=== PATIENT | female | born 1975 | race Caucasian/White ===

== ENCOUNTER 2017-12-06 20:09 | Emergency (ER) | payer OTHER ==
[~2017-12-06] VITALS: Ht 167.6 cm; Wt 59.0 kg
[2017-12-06 21:02] LABS: BASOPHILS ABSOLUTE AUTO 0.03 K/mm3 (0.00-0.23); BASOPHILS PERCENT AUTO 0 % (0-2); EOSINOPHILS ABSOLUTE AUTO 0.43 K/mm3 (0.00-0.68); EOSINOPHILS PERCENT AUTO 5 % (0-6); Hematocrit 37.4 % (33.0-51.0); Hemoglobin 12.5 g/dL (11.5-16.0); IMMATURE GRAN ABSOLUTE AUTO 0.01 K/mm3 (0.00-0.10); IMMATURE GRAN PERCENT AUTO 0 % (0-1); LYMPHOCYTES ABSOLUTE AUTO 2.37 K/mm3 (0.84-5.20); LYMPHOCYTES PERCENT AUTO 26 % (21-46); MONOCYTES ABSOLUTE AUTO 0.61 K/mm3 (0.16-1.47); MONOCYTES PERCENT AUTO 7 % (4-13); Mean Corpuscular HGB 31.2 pg (26.0-34.0); Mean Corpuscular HGB Conc 33.4 g/dL (31.5-36.5); Mean Corpuscular Volume 93 fL (80-100); Mean Platelet Volume 9.4 fL (9.1-12.4); NEUTROPHILS PERCENT AUTO 62 % (41-73); Platelet Count 224 K/mm3 (150-400); RDW Coefficient Variation 13.8 % (11.7-14.2); RDW Standard Deviation 47.3 fL (35.1-46.3); Red Blood Cell Count 4.01 M/mm3 (3.80-5.20); White Blood Cell Count 9.15 K/mm3 (4.00-11.30)
[2017-12-06 21:10] LABS: Calcium, Ionized (POC) 1.17 mmol/L (1.10-1.46); Chloride (POC) 103 mmol/L (98-108); Creatinine (POC) 0.6 mg/dL (0.6-1.0); Glucose (ISTAT POC) 101 mg/dL (70-99); Hemoglobin (POC) 12.6 g/dL (12.0-16.0); Potassium (POC) 3.5 mmol/L (3.5-5.5); Sodium (POC) 140 mmol/L (135-148); Total CO2 (POC) 26 mmol/L (21-32)
[2017-12-06] MEDS ORDERED: PSEU120ER PO (23:10)
[2017-12-06] MEDS ORDERED: Flonase 0.05% N16 GM (23:10)
[2017-12-06] MEDS ORDERED: Augmentin 875-1 EACH PO (23:10)
== END 2017-12-06 23:41 | disposition home or self-care (01) ==
LOC: ER 20:09
PROVIDERS: Physician Assistant
DX: Z88.8 Allergy status to other drugs, medicaments and biological substances (principal)
CPT/HCPCS: 36415; 70487; 80047; 85014; 85025; 96374; 96375; 99284-25; J0780; J1200; J1885; Q9967

== ENCOUNTER 2020-01-24 00:48 | Day surgery (SDC) | payer OTHER ==
[~2020-01-24 00:48] MED LIST: Augmentin 875-1 EACH PO; BUPR100 PO; FLUT1DIS5 INH; Flonase 0.05% N16 GM; PROG100 PO; PSEU120ER PO; QVAR REDIHALE10.6 G3 INH; ZYRTEC10 M2 PO
[2020-01-24] MEDS ORDERED: RIZATRIPTAN10 M3 PO (08:23)
--- NOTE | 2020-01-24 08:55 | NUR ---
2 IV ATTEMPTS PER eMga LONG RN AND 2 ATTEMPTS PER Sirisha RUELAS RN
== END 2020-01-24 09:45 | disposition home or self-care (01) ==
LOC: ATC 00:48
DX: R77.8 Other specified abnormalities of plasma proteins (principal)
CPT/HCPCS: 96365; J2916

== ENCOUNTER 2020-01-26 00:20 | Day surgery (SDC) | payer OTHER ==
[~2020-01-26 00:20] MED LIST changes: +RIZATRIPTAN10 M3 PO
== END 2020-01-26 09:35 | disposition home or self-care (01) ==
LOC: ATC 00:20
DX: R77.8 Other specified abnormalities of plasma proteins (principal)
CPT/HCPCS: J2916

== ENCOUNTER 2020-04-01 00:07 | Day surgery (SDC) | payer OTHER ==
[2020-04-01] MEDS ORDERED: ONDANSETRON4 MG/2 ML IV (08:04)
== END 2020-04-01 09:22 | disposition home or self-care (01) ==
LOC: ATC 00:07
DX: E61.1 Iron deficiency (principal); E03.9 Hypothyroidism, unspecified; Z88.8 Allergy status to other drugs, medicaments and biological substances
CPT/HCPCS: 96365; 96375; J2405; J2916

== ENCOUNTER 2020-04-03 00:04 | Day surgery (SDC) | payer OTHER ==
[~2020-04-03 00:04] MED LIST changes: +ONDANSETRON4 MG/2 ML IV
--- NOTE | 2020-04-03 09:20 | NUR ---
IV WRAPPED WITH 2X2'S, COBAN, AND NETTING FOR INFUSION ON WEDNESDAY PER PT REQUEST
== END 2020-04-03 09:20 | disposition home or self-care (01) ==
LOC: ATC 00:04
DX: E61.1 Iron deficiency (principal); Z88.8 Allergy status to other drugs, medicaments and biological substances
CPT/HCPCS: 96365; 96375; J2405; J2916

== ENCOUNTER 2020-04-05 00:05 | Day surgery (SDC) | payer OTHER | END 2020-04-05 08:59 | disposition home or self-care (01) | LOC: ATC 00:05 | DX: E61.1 Iron deficiency (principal); E03.9 Hypothyroidism, unspecified; Z88.4 Allergy status to anesthetic agent; Z88.8 Allergy status to other drugs, medicaments and biological substances | CPT/HCPCS: 96365; 96375; J2405; J2916 ==

== ENCOUNTER → 2022-02-24 | Outpatient (CLI) | payer OTHER | END | disposition home or self-care (01) | LOC: LAB SHORT 08:02 → PLD 08:02 | DX: D22.5 Melanocytic nevi of trunk (principal) | CPT/HCPCS: 88305 ==

== ENCOUNTER → 2022-03-18 | Outpatient (CLI) | payer OTHER | END | disposition home or self-care (01) | LOC: LAB SHORT 12:59 | DX: D22.5 Melanocytic nevi of trunk (principal) | CPT/HCPCS: 88305 ==

== ENCOUNTER → 2022-04-16 | Outpatient (CLI) | payer OTHER | END | disposition home or self-care (01) | LOC: LAB 15:00 → LAB SHORT 15:00 | DX: L98.9 Disorder of the skin and subcutaneous tissue, unspecified (principal) | CPT/HCPCS: 88305; 88312 ==